=== PATIENT | female | born 1950 | race Caucasian/White ===

== ENCOUNTER 2016-09-15 16:22 | Inpatient (IN) | payer MEDICARE ==
[~2016-09-15] VITALS: Ht 160 cm; Wt 68.5 kg
--- NOTE | ~2016-09-15 | O ---
[place], [place] OPERATIVE NOTE NAME: MONICA FELICIANO [facility] #: [id number] UNIT #: [id number] ROOM: 509 DOCTOR: FREDY GONZALEZ DO BIRTHDATE: [birth year] DOS: 09/16/2016 PREOPERATIVE DIAGNOSIS: Left hip intertrochanteric fracture, three-part, nondisplaced. POSTOPERATIVE DIAGNOSIS: Left hip intertrochanteric fracture, three-part, nondisplaced. OPERATIVE PROCEDURE: Left hip intertrochanteric fracture trochanteric nail fixation. SURGEON: Fredy Gonzalez DO. MAIL INSERTER: Cristela. ANESTHESIA: KVNG Duran. INDICATIONS: The patient is a 66-year-old female who fell yesterday while walking her dog. The patient had pain in the left hip and decreased ability to ambulate. X-rays indicated a nondisplaced intertrochanteric fracture, three-part. The risks and benefits of the procedure were explained to the patient and her family preoperatively. Preoperative labs and x-rays were obtained including a medical workup. PROCEDURE IN DETAIL: The patient was brought to the operative suite after the left hip had been marked in the holding area. A spinal anesthetic was performed. The patient was placed supine on the operative table. Time-out was performed. The left lower extremity was extended on the fracture table. The right lower extremity was flexed and externally rotated. The patient received Ancef 2 grams IV piggyback. C-arm was used to evaluate the fracture site in multiple planes. The left lower extremity was prepped and draped in the usual orthopedic manner. The area about the proximal greater trochanter was injected with Marcaine 0.25% with epinephrine. C-arm was utilized to identify the proximal area of the greater trochanter. An incision was made approximately 4 cm in length. Subcutaneous tissue was spread down to the level of the fascia and the fascia was divided along its fibers. A partially-threaded guidewire was placed at the level of the greater trochanter and advanced distally. Position was again evaluated under C-arm in multiple planes and found to be adequate. The cannulated reamer was placed over the guidewire and through the soft tissue protector. This was advanced to the level of the lesser trochanter. Under C-arm guidance, the 10 mm x 130 degree trochanteric nail was placed from proximal to distal and advanced. This was noted to have a snug fit at the medullary canal. When this was adequate, the radiolucent guide was utilized to place a partially-threaded guidewire through the 130 degree angle from the lateral cortex through the neck and into the head. The position was evaluated in multiple planes, the length was measured and the reamer was utilized over the guidewire. A 90 mm helical blade was then advanced over the guidewire and [place], [place] OPERATIVE NOTE NAME: MONICA FELICIANO UNIT #: [id number] ROOM: 509 DOCTOR: FREDY GONZALEZ DO BIRTHDATE: [birth year] position was evaluated in AP and lateral position. When this was found to be adequate, the proximal set screw was advanced. The fracture site was then compressed. Attention was then turned to the distal locking screw. Using the triple-cannula system, the incision was made along the lateral femur after the area had been injected with Marcaine 0.5% with epinephrine. Subcutaneous tissue was spread down to the level of the bone. The trocar was removed and the calibrated drill bit was used to create the drill hole through the distal locking screw. The length was read off the drill bit and a 32 mm screw was placed under C-arm guidance from lateral to medial through the distal locking hole. The guide was removed. All areas were again evaluated by C-arm. The wounds were copiously irrigated with normal saline and closed in a layered fashion with 0 Vicryl for the fascia, 2-0 Vicryl for the subcutaneous layer and skin guerrero. The remainder of the Marcaine 0.5% with epinephrine was injected at the incision sites. Dressing was applied, Xeroform, 4 x 4s, and Tegaderm. The patient was taken to the recovery room in satisfactory condition. COUNTS: Sponge and needle count correct. ESTIMATED BLOOD LOSS: 150 mL. SPECIMENS: None. DRAINS: None. PACKING: None. COMPLICATIONS: None. FINDINGS: Nondisplaced intertrochanteric fracture, three-part. IMPLANTS: Synthes 10 mm x 130 degree TFN nail, 90 mm helical blade, 32 mm distal locking screw. [place], [place] OPERATIVE NOTE NAME: MONICA FELICIANO UNIT #: [id number] ROOM: 509 DOCTOR: FREDY GONZALEZ DO BIRTHDATE: [birth year] FREDY GONZALEZ DO CM:OPRECORD:OPERATIVE NOTE [id number] FREDY GONZALEZ DO 09/16/16 1456 interface
[2016-09-15 16:43] VITALS: BP 139/54
[2016-09-15 16:57] LABS: BASO % 0.5 % (0.0-1.0); EOS % 0.6 % (1.0-4.0); HEMATOCRIT 35.5 % (37.0-47.0); HEMOGLOBIN 11.6 g/dl (12.0-16.0); LYMPH # 1.8 10*3/uL (1.3-4.4); LYMPH % 27.2 % (27.0-41.0); MEAN CELL VOLUME 92.7 fl (81.0-99.0); MEAN CORPUSCULAR HGB 30.3 pg (27.0-31.0); MEAN CORPUSCULAR HGB CONC 32.7 g/dl (33.0-37.0); MEAN PLATELET VOLUME 10.7 fl (9.6-12.3); MONO # 0.4 10*3/uL (0.1-1.0); MONO % 5.6 % (3.0-9.0); NEUT # 4.4 10*3/uL (2.3-7.9); NEUT % 65.6 % (47.0-73.0); PLATELET COUNT AUTOMATED 189 10*3/uL (130-400); RED BLOOD COUNT 3.83 10*6/uL (4.10-5.10); RED CELL DISTRI WIDTH 14.1 % (0-14.5); WHITE BLOOD COUNT 6.7 10*3/uL (4.8-10.8)
[2016-09-15 17:07] LABS: PROTHROMBIN TIME 10.3 SECONDS (9.0-12.4)
[2016-09-15 17:13] LABS: ALBUMIN 3.4 gm/dl (3.1-4.5); ALKALINE PHOSPHATASE 66 U/L (45-117); BILIRUBIN, TOTAL 0.2 mg/dl (0.2-1.0); BUN 20 mg/dl (7-24); C-REACTIVE PROTEIN 1.86 MG/DL (0-0.3); CARBON DIOXIDE 26 mmol/L (21-32); CHLORIDE 106 mmol/L (98-107); CKMB 0.9 ng/ml (0.5-3.6); CPK 132 U/L (26-192); EST GLOM FILT AFRICAN AMERICAN > 60 ml/min; GLUCOSE 102 mg/dL (65-99); MAGNESIUM 2.5 mg/dL (1.5-2.1); SGOT/AST 19 IU/L (3-35); SGPT/ALT 21 U/L (12-78); SODIUM 141 mmol/L (136-145); TOTAL PROTEIN 7.3 gm/dL (6.4-8.2)
[2016-09-15 17:14] LABS: TROPONIN I < 0.015 ng/ml (<0.045)
[2016-09-15] MEDS ORDERED: METOPROLOL TART50 M1 PO (18:32)
[2016-09-15] MEDS ORDERED: ATORVASTATIN CA20 M1 PO (18:33)
[2016-09-15] MEDS ORDERED: QUINAPRIL40 MG PO (18:33)
[2016-09-15 20:00] VITALS: BP 129/45
[2016-09-15] MEDS ORDERED: QUINAPRIL20 MG PO (20:06)
[2016-09-15] MEDS ORDERED: FISH OIL 1,001000 MG PO (20:09)
[2016-09-15] MEDS ORDERED: MAGNESIUM250 M2 PO (20:10)
[2016-09-15] MEDS ORDERED: IRON325 M1 PO (20:11)
[2016-09-15] MEDS ORDERED: CALCIUM 600600 M2 PO (20:12)
[2016-09-16] VITALS (14 sets, daily range): BP systolic 108–138; BP diastolic 38–86
[2016-09-16 05:21] LABS: BILIRUBIN NEGATIVE (NEGATIVE); BLOOD 2+ (NEGATIVE); CLARITY CLEAR (CLEAR); COLOR YELLOW (YELLOW); GLUCOSE NEGATIVE (NEGATIVE); KETONE NEGATIVE (NEGATIVE); LEUKO ESTERASE NEGATIVE (NEGATIVE); NITRITE NEGATIVE (NEGATIVE); PROTEIN NEGATIVE (NEGATIVE); SPECIFIC GRAVITY 1.015 (1.005-1.030); UROBILINOGEN 0.2 E.U./dl (0.2-1.0)
[2016-09-16 05:39] LABS: BACTERIA 1+; RBC 21-30 rbc/hpf (0-2); URINE REFLEX COMMENT YES (NO)
[2016-09-16 06:56] LABS: BASO % 0.4 % (0.0-1.0); EOS # 0.1 10*3/uL (0.0-0.4); EOS % 1.2 % (1.0-4.0); HEMATOCRIT 32.4 % (37.0-47.0); HEMOGLOBIN 10.7 g/dl (12.0-16.0); LYMPH # 2.4 10*3/uL (1.3-4.4); LYMPH % 34.2 % (27.0-41.0); MEAN CELL VOLUME 92.6 fl (81.0-99.0); MEAN CORPUSCULAR HGB 30.6 pg (27.0-31.0); MEAN PLATELET VOLUME 10.5 fl (9.6-12.3); MONO # 0.4 10*3/uL (0.1-1.0); MONO % 5.8 % (3.0-9.0); NEUT % 58.3 % (47.0-73.0); PLATELET COUNT AUTOMATED 160 10*3/uL (130-400); RED CELL DISTRI WIDTH 14.1 % (0-14.5); WHITE BLOOD COUNT 6.9 10*3/uL (4.8-10.8)
[2016-09-16 07:09] LABS: HEMOGLOBIN A1c 6.4 % (4.8-5.6)
[2016-09-16 07:33] LABS: BUN 20 mg/dl (7-24); CARBON DIOXIDE 25 mmol/L (21-32); CHLORIDE 110 mmol/L (98-107); CHOLESTEROL 120 mg/dL (<200); EST GLOM FILT AFRICAN AMERICAN > 60 ml/min; GLUCOSE 107 mg/dL (65-99); MAGNESIUM 2.4 mg/dL (1.5-2.1); PHOSPHOROUS 4.3 mg/dL (2.5-4.9); SODIUM 142 mmol/L (136-145); TRIGLYCERIDES 79 mg/dl (<150); VLDL CHOLESTEROL 16 mg/dL (6-40)
[2016-09-16 07:39] LABS: VITAMIN D, 25-HYDROXY 37.8 ng/mL (30-100)
[2016-09-16 07:40] LABS: FOLIC ACID 18.19 ng/mL (>5.38)
[2016-09-16 07:41] LABS: FREE T4 1.19 ng/dl (0.76-1.46); HDL CHOLESTEROL 33 mg/dl (40-60); LDL CHOLESTEROL 71 mg/dL (9-159)
[2016-09-17] VITALS: BP 120/60
[2016-09-17 04:00] VITALS: BP 112/56
[2016-09-17 06:12] LABS: BASO % 0.4 % (0.0-1.0); EOS # 0.1 10*3/uL (0.0-0.4); EOS % 1.5 % (1.0-4.0); HEMATOCRIT 29.6 % (37.0-47.0); HEMOGLOBIN 9.6 g/dl (12.0-16.0); LYMPH # 1.5 10*3/uL (1.3-4.4); LYMPH % 27.3 % (27.0-41.0); MEAN CELL VOLUME 94.6 fl (81.0-99.0); MEAN CORPUSCULAR HGB 30.7 pg (27.0-31.0); MEAN CORPUSCULAR HGB CONC 32.4 g/dl (33.0-37.0); MEAN PLATELET VOLUME 11.2 fl (9.6-12.3); MONO # 0.3 10*3/uL (0.1-1.0); MONO % 4.7 % (3.0-9.0); NEUT # 3.6 10*3/uL (2.3-7.9); NEUT % 65.9 % (47.0-73.0); PLATELET COUNT AUTOMATED 136 10*3/uL (130-400); RED BLOOD COUNT 3.13 10*6/uL (4.10-5.10); RED CELL DISTRI WIDTH 14.4 % (0-14.5); WHITE BLOOD COUNT 5.5 10*3/uL (4.8-10.8)
[2016-09-17 08:00] VITALS: BP 111/41; BP 118/60
[2016-09-17 12:00] VITALS: BP 126/76
[2016-09-17 16:00] VITALS: BP 105/37
[2016-09-17 20:00] VITALS: BP 103/52
[2016-09-18] VITALS: BP 141/56
[2016-09-18 06:20] LABS: BASO % 0.3 % (0.0-1.0); EOS # 0.1 10*3/uL (0.0-0.4); EOS % 2.2 % (1.0-4.0); HEMATOCRIT 29.3 % (37.0-47.0); HEMOGLOBIN 9.6 g/dl (12.0-16.0); LYMPH # 1.6 10*3/uL (1.3-4.4); MEAN CELL VOLUME 91.8 fl (81.0-99.0); MEAN CORPUSCULAR HGB 30.1 pg (27.0-31.0); MEAN CORPUSCULAR HGB CONC 32.8 g/dl (33.0-37.0); MEAN PLATELET VOLUME 11.8 fl (9.6-12.3); MONO # 0.3 10*3/uL (0.1-1.0); MONO % 4.8 % (3.0-9.0); NEUT # 4.3 10*3/uL (2.3-7.9); NEUT % 67.4 % (47.0-73.0); PLATELET COUNT AUTOMATED 134 10*3/uL (130-400); RED BLOOD COUNT 3.19 10*6/uL (4.10-5.10); RED CELL DISTRI WIDTH 14.1 % (0-14.5); WHITE BLOOD COUNT 6.3 10*3/uL (4.8-10.8)
[2016-09-18 08:00] VITALS: BP 108/48
[2016-09-18 12:00] VITALS: BP 114/48
[2016-09-18 16:00] VITALS: BP 98/50
[2016-09-18 20:00] VITALS: BP 116/52; BP 126/61
[2016-09-19] VITALS: BP 134/60
[2016-09-19 06:06] LABS: BASO % 0.3 % (0.0-1.0); EOS # 0.1 10*3/uL (0.0-0.4); EOS % 1.6 % (1.0-4.0); HEMATOCRIT 27.5 % (37.0-47.0); LYMPH # 1.3 10*3/uL (1.3-4.4); LYMPH % 21.3 % (27.0-41.0); MEAN CELL VOLUME 92.9 fl (81.0-99.0); MEAN CORPUSCULAR HGB 30.4 pg (27.0-31.0); MEAN CORPUSCULAR HGB CONC 32.7 g/dl (33.0-37.0); MEAN PLATELET VOLUME 11.1 fl (9.6-12.3); MONO # 0.3 10*3/uL (0.1-1.0); MONO % 4.9 % (3.0-9.0); NEUT # 4.3 10*3/uL (2.3-7.9); NEUT % 71.6 % (47.0-73.0); PLATELET COUNT AUTOMATED 131 10*3/uL (130-400); RED BLOOD COUNT 2.96 10*6/uL (4.10-5.10); RED CELL DISTRI WIDTH 14.1 % (0-14.5); WHITE BLOOD COUNT 6.1 10*3/uL (4.8-10.8)
[2016-09-19 06:24] LABS: EST GLOM FILT AFRICAN AMERICAN > 60 ml/min
[2016-09-19 08:00] VITALS: BP 101/48
[2016-09-19 16:00] VITALS: BP 125/58
[2016-09-19 20:00] VITALS: BP 106/52
[2016-09-20] VITALS: BP 126/36; BP 126/50
[2016-09-20 08:00] VITALS: BP 101/52
[2016-09-20 09:45] VITALS: BP 108/58
[2016-09-20 12:00] VITALS: BP 98/50
[2016-09-20 16:00] VITALS: BP 106/52
[2016-09-20 20:00] VITALS: BP 112/62
[2016-09-21 00:50] VITALS: BP 126/70
[2016-09-21 08:00] VITALS: BP 106/70
[2016-09-21 12:00] VITALS: BP 100/50
[2016-09-21 16:00] VITALS: BP 100/52
[2016-09-21 20:00] VITALS: BP 117/54
[2016-09-22] VITALS: BP 124/43
[2016-09-22 06:27] LABS: BASO % 0.2 % (0.0-1.0); EOS # 0.1 10*3/uL (0.0-0.4); EOS % 2.2 % (1.0-4.0); HEMATOCRIT 27.8 % (37.0-47.0); HEMOGLOBIN 9.1 g/dl (12.0-16.0); LYMPH # 1.9 10*3/uL (1.3-4.4); LYMPH % 38.3 % (27.0-41.0); MEAN CELL VOLUME 93.3 fl (81.0-99.0); MEAN CORPUSCULAR HGB 30.5 pg (27.0-31.0); MEAN CORPUSCULAR HGB CONC 32.7 g/dl (33.0-37.0); MEAN PLATELET VOLUME 10.5 fl (9.6-12.3); MONO # 0.4 10*3/uL (0.1-1.0); MONO % 7.1 % (3.0-9.0); NEUT # 2.6 10*3/uL (2.3-7.9); PLATELET COUNT AUTOMATED 157 10*3/uL (130-400); RED BLOOD COUNT 2.98 10*6/uL (4.10-5.10); RED CELL DISTRI WIDTH 13.7 % (0-14.5); WHITE BLOOD COUNT 4.9 10*3/uL (4.8-10.8)
[2016-09-22 06:57] LABS: EST GLOM FILT AFRICAN AMERICAN > 60 ml/min
[2016-09-22 08:00] VITALS: BP 107/43
[2016-09-22 12:00] VITALS: BP 110/42
[2016-09-22 16:00] VITALS: BP 119/52
[2016-09-22 20:00] VITALS: BP 148/83
[2016-09-23] VITALS: BP 116/56
[2016-09-23 08:00] VITALS: BP 94/54
[2016-09-23 12:00] VITALS: BP 111/62
[2016-09-23] MEDS ORDERED: PERCOCET 325 MG1 TA2 PO (13:46)
[2016-09-23] MEDS ORDERED: QUINAPRIL20 MG PO (16:21)
== END 2016-09-23 15:45 | disposition other institution (70) | DRG 481 ==
LOC: ED 16:22 → 5E 17:59 → EDHOLD 17:59 → 5E 18:20
PROVIDERS: Emergency Medicine; Internal Medicine; Orthopaedic Surgery
PROC: 0QH736Z Insertion of Intramedullary Internal Fixation Device into Left Upper Femur, Percutaneous Approach (ICD-10-PCS; principal; 2016-09-16)
DX: S72.145A Nondisplaced intertrochanteric fracture of left femur, initial encounter for closed fracture (principal); E44.1 Mild protein-calorie malnutrition; I10 Essential (primary) hypertension; D64.9 Anemia, unspecified; E78.00 Pure hypercholesterolemia, unspecified; R00.1 Bradycardia, unspecified; R73.9 Hyperglycemia, unspecified; E83.41 Hypermagnesemia; R79.82 Elevated C-reactive protein (CRP); F17.218 Nicotine dependence, cigarettes, with other nicotine-induced disorders; Z71.6 Tobacco abuse counseling; Z90.710 Acquired absence of both cervix and uterus; Z90.49 Acquired absence of other specified parts of digestive tract; Z68.26 Body mass index [BMI] 26.0-26.9, adult; Z79.899 Other long term (current) drug therapy; Z87.440 Personal history of urinary (tract) infections; Z88.6 Allergy status to analgesic agent; W19.XXXA Unspecified fall, initial encounter; Y93.89 Activity, other specified; Y92.89 Other specified places as the place of occurrence of the external cause; Y99.8 Other external cause status; Z82.49 Family history of ischemic heart disease and other diseases of the circulatory system; Z80.49 Family history of malignant neoplasm of other genital organs; Z80.1 Family history of malignant neoplasm of trachea, bronchus and lung

== ENCOUNTER → 2016-11-10 | Outpatient (CLI) | payer MEDICARE ==
[~2016-11-10] MED LIST: ATORVASTATIN CA20 M1 PO; CALCIUM 600600 M2 PO; FISH OIL 1,001000 MG PO; IRON325 M1 PO; MAGNESIUM250 M2 PO; METOPROLOL TART50 M1 PO; PERCOCET 325 MG1 TA2 PO; QUINAPRIL20 MG PO; QUINAPRIL40 MG PO
== END | disposition home or self-care (01) ==
LOC: ORTHO 03:17
DX: S72.002D Fracture of unspecified part of neck of left femur, subsequent encounter for closed fracture with routine healing (principal); X58.XXXD Exposure to other specified factors, subsequent encounter; Z87.81 Personal history of (healed) traumatic fracture

== ENCOUNTER 2016-11-26 20:12 | Emergency (ER) | payer MEDICARE ==
[~2016-11-26] VITALS: Ht 160 cm; Wt 72.6 kg
[2016-11-26 20:19] VITALS: BP 136/76
[2016-11-26] MEDS ORDERED: NAPROSYN500 MG PO (21:40)
[2016-11-26] MEDS ORDERED: MEDROL DOSEPAK4 MG PO (21:50)
== END 2016-11-26 21:56 | disposition home or self-care (01) ==
LOC: ED 20:12
DX: M77.52 Other enthesopathy of left foot and ankle (principal); E78.00 Pure hypercholesterolemia, unspecified; I10 Essential (primary) hypertension; F17.200 Nicotine dependence, unspecified, uncomplicated; Z90.710 Acquired absence of both cervix and uterus; Z98.890 Other specified postprocedural states; Z90.49 Acquired absence of other specified parts of digestive tract; Z79.899 Other long term (current) drug therapy; Z88.5 Allergy status to narcotic agent

== ENCOUNTER → 2016-12-15 | Outpatient (CLI) | payer MEDICARE ==
[~2016-12-15] MED LIST changes: +MEDROL DOSEPAK4 MG PO; +NAPROSYN500 MG PO
== END | disposition home or self-care (01) ==
LOC: MAMMO 09:00
DX: Z12.31 Encounter for screening mammogram for malignant neoplasm of breast (principal)

== ENCOUNTER 2017-01-05 17:59 | Emergency (ER) | payer OTHER ==
[~2017-01-05] VITALS: Wt 78.9 kg
[2017-01-05 18:12] VITALS: BP 158/49
[2017-01-05 18:35] LABS: BILIRUBIN NEGATIVE (NEGATIVE); BLOOD 3+ (NEGATIVE); CLARITY SL CLOUDY (CLEAR); COLOR YELLOW (YELLOW); GLUCOSE NEGATIVE (NEGATIVE); KETONE NEGATIVE (NEGATIVE); LEUKO ESTERASE 2+ (NEGATIVE); NITRITE POSITIVE (NEGATIVE); PH 6.5 (5.0-9.0); UROBILINOGEN 0.2 E.U./dl (0.2-1.0)
[2017-01-05 18:45] LABS: BACTERIA 4+; WBC 21-30 wbc/hpf (0-5)
[2017-01-05] MEDS ORDERED: AMINOPHYLLIN200 MG PO (18:56)
== END 2017-01-05 19:38 | disposition home or self-care (01) ==
LOC: ED 17:59
PROVIDERS: Physician Assistant
DX: N30.01 Acute cystitis with hematuria (principal); F17.200 Nicotine dependence, unspecified, uncomplicated; Z88.6 Allergy status to analgesic agent; Z79.899 Other long term (current) drug therapy

== ENCOUNTER → 2017-01-06 | Outpatient (CLI) | payer OTHER ==
[~2017-01-06] MED LIST changes: +AMINOPHYLLIN200 MG PO
== END | disposition home or self-care (01) ==
LOC: ORTHO 00:44
DX: M17.11 Unilateral primary osteoarthritis, right knee (principal)

== ENCOUNTER → 2017-01-07 | Day surgery (SDC) | payer OTHER ==
[~2017-01-07] VITALS: Ht 160 cm; Wt 78.9 kg
--- NOTE | ~2017-01-07 | O ---
[place], [place] OPERATIVE NOTE NAME: DARIUS FELICIANOA Patricia UNIT #: [id number] ROOM: DOCTOR: EDE MARTE MD BIRTHDATE: [birth year] DOS: 01/07/2017 PROCEDURE: Flexible sigmoidoscopy. INDICATIONS: History of colon polyps. An informed consent was obtained from the patient after indications of procedure, the alternatives and potential complications were explained to her. PROCEDURE MEDICATIONS: Sedation was administered by Anesthesiology Department. SCOPE USED: Olympus pediatric colonoscope, variable stiffness, GF-180 insertion was to the mid sigmoid only due to adhesions and benign stricture. Informed consent was obtained from the patient after indication of the procedure, alternatives and potential complications were explained to her. FINDINGS: After adequate sedation, the patient was placed in left lateral decubitus position. Rectal examination showed a normal sphincter tone and no external hemorrhoids. Scope was introduced into the rectum, then advanced to the sigmoid colon only due to severe adhesions and a benign looking sigmoid stricture. We encountered a few diverticula, but no evidence of acute diverticulitis. Unable to advance the scope beyond that point. Therefore, the procedure was aborted. Inspection of the rectum and sigmoid colon showed no polyps or other abnormalities besides the diverticulosis. Retroflexed views in the rectum were unremarkable. The scope was then withdrawn after the rectum was decompressed. The patient tolerated the procedure well. IMPRESSION: 1. Incomplete colonoscopy to the sigmoid colon only due to adhesions and sigmoid stricture. 2. Diverticulosis. PLAN: To proceed with a barium enema to evaluate the rest of the colon. High fiber diet, fiber supplement advised. [place], [place] OPERATIVE NOTE NAME: MONICA FELICIANO UNIT #: [id number] ROOM: DOCTOR: EDE MARTE MD BIRTHDATE: [birth year] EDE MARTE MD CM:OPRECORD:OPERATIVE NOTE [id number] EDE MARTE MD 01/07/17 1225 interface
[2017-01-07 06:35] VITALS: BP 148/110
[2017-01-07 08:05] VITALS: BP 118/50
[2017-01-07 08:20] VITALS: BP 144/57
[2017-01-07 08:35] VITALS: BP 134/80
== END | disposition home or self-care (01) ==
LOC: SDC 01-03 10:15
DX: Z09 Encounter for follow-up examination after completed treatment for conditions other than malignant neoplasm (principal); K57.30 Diverticulosis of large intestine without perforation or abscess without bleeding; K56.69 Other intestinal obstruction; K66.0 Peritoneal adhesions (postprocedural) (postinfection); Z88.8 Allergy status to other drugs, medicaments and biological substances; F41.9 Anxiety disorder, unspecified; I10 Essential (primary) hypertension; E11.9 Type 2 diabetes mellitus without complications; F32.9 Major depressive disorder, single episode, unspecified; E78.00 Pure hypercholesterolemia, unspecified; Z98.890 Other specified postprocedural states; F17.210 Nicotine dependence, cigarettes, uncomplicated

== ENCOUNTER → 2017-01-10 | Outpatient (CLI) | payer OTHER | END | disposition home or self-care (01) | LOC: CT 12-30 13:00 → LAB 12:39 → CT 13:00 | DX: E55.9 Vitamin D deficiency, unspecified (principal); R53.83 Other fatigue; M79.672 Pain in left foot ==

== ENCOUNTER → 2017-04-13 | Outpatient (CLI) | payer OTHER | END | disposition home or self-care (01) | LOC: ORTHO 01:18 → RAD 09:00 → ORTHO 19:47 | DX: S72.145A Nondisplaced intertrochanteric fracture of left femur, initial encounter for closed fracture (principal); X58.XXXA Exposure to other specified factors, initial encounter; Y93.9 Activity, unspecified; Y92.9 Unspecified place or not applicable; Y99.9 Unspecified external cause status ==

== ENCOUNTER → 2017-05-16 | Outpatient (CLI) | payer OTHER | END | disposition home or self-care (01) | LOC: LAB 14:24 | DX: R19.7 Diarrhea, unspecified (principal) ==

== ENCOUNTER → 2017-11-17 | Outpatient (CLI) | payer OTHER | END | disposition home or self-care (01) | LOC: ORTHO 01:29 | DX: M25.562 Pain in left knee (principal) ==

== ENCOUNTER → 2018-01-16 | Outpatient (CLI) | payer OTHER | END | disposition home or self-care (01) | LOC: ORTHO 03:51 | DX: Z47.89 Encounter for other orthopedic aftercare (principal); M77.30 Calcaneal spur, unspecified foot; S92.002D Unspecified fracture of left calcaneus, subsequent encounter for fracture with routine healing; X58.XXXD Exposure to other specified factors, subsequent encounter ==

== ENCOUNTER → 2018-01-18 | Outpatient (CLI) | payer OTHER | END | disposition home or self-care (01) | LOC: MAMMO 01-04 13:30 | DX: Z12.31 Encounter for screening mammogram for malignant neoplasm of breast (principal) ==

== ENCOUNTER → 2018-11-17 | Outpatient (CLI) | payer MEDICARE | END | disposition home or self-care (01) | LOC: LAB 16:38 | DX: R58 Hemorrhage, not elsewhere classified (principal) ==

== ENCOUNTER → 2019-09-21 | Outpatient (CLI) | payer MEDICARE ==
[2019-09-21 12:44] LABS: BASO % 0.4 % (0.0-1.0); EOS # 0.1 10*3/uL (0.0-0.4); HEMATOCRIT 34.9 % (37.0-47.0); LYMPH # 2.2 10*3/uL (1.3-4.4); LYMPH % 30.2 % (27.0-41.0); MEAN CELL VOLUME 91.6 fl (81.0-99.0); MEAN CORPUSCULAR HGB 31.5 pg (27.0-31.0); MEAN CORPUSCULAR HGB CONC 34.4 g/dl (33.0-37.0); MEAN PLATELET VOLUME 10.3 fl (9.6-12.3); MONO # 0.4 10*3/uL (0.1-1.0); MONO % 5.9 % (3.0-9.0); NEUT # 4.6 10*3/uL (2.3-7.9); NEUT % 62.2 % (47.0-73.0); PLATELET COUNT AUTOMATED 194 10*3/uL (130-400); RED BLOOD COUNT 3.81 10*6/uL (4.10-5.10); RED CELL DISTRI WIDTH 13.2 % (0-14.5); WHITE BLOOD COUNT 7.4 10*3/uL (4.8-10.8)
[2019-09-21 13:18] LABS: ALBUMIN 3.5 gm/dl (3.1-4.5); CREATININE 1.22 mg/dL (0.55-1.02); FREE T4 1.15 ng/dl (0.76-1.46); POTASSIUM 4.2 mmol/L (3.5-5.1); TOTAL PROTEIN 7.3 gm/dL (6.4-8.2)
[2019-09-21 13:23] LABS: THYROID STIM HORMONE (HS) 1.49 uIU/ml (0.358-4.75)
[2019-09-21 14:19] LABS: VITAMIN D, 25-HYDROXY 64.6 ng/mL (30-100)
== END | disposition home or self-care (01) ==
LOC: LAB 00:34
PROVIDERS: Internal Medicine
DX: Z00.00 Encounter for general adult medical examination without abnormal findings (principal); I10 Essential (primary) hypertension; E78.2 Mixed hyperlipidemia; E11.9 Type 2 diabetes mellitus without complications; E55.9 Vitamin D deficiency, unspecified